=== PATIENT | male | born 1985 | race Caucasian/White ===

== ENCOUNTER 2019-03-19 17:41 | Emergency (ER) | payer OTHER ==
[2019-03-19 17:52] VITALS: RESP 18
[2019-03-19] MEDS ORDERED: KETOROLAC 30 MG/ML 1 ML VIAL IVP STA (18:07)
--- NOTE | 2019-03-19 18:29 | ED ---
Fall HPI - General Chief Complaint: Fall Stated Complaint: Fall, Head Injury Time Seen by Provider: 03/19/19 17:41 Source: patient, EMS, RN notes reviewed Mode of arrival: EMS - History of Present Illness Initial Comments: This is a 33-year-old male who is currently in treatment at [facility] for heroin abuse/addiction worries been since the 18th of this month who states he f ell prior to arrival was brought here by EMS with complaints of head neck and right chest wall pain. He thinks he may broken some ribs he did have brief loss of consciousness for about a minute complains some occipital head pain and some posterior superior neck pain. He denies any loss of function to his upper or lower extremities he denies any other injuries at this time. MD Complaint: fall - Related Data Home Medications Medication Instructions Recorded Confirmed Acetaminophen Tab [Tylenol Tab] 650 mg PO Q4H PRN 03/19/19 03/19/19 Calcium/Magnesium 1000mg/500mg 1 - 2 tab PO TID PRN 03/19/19 03/19/19 Chlorpheniramine Maleate 4 mg PO Q4H PRN 03/19/19 03/19/19 [Chlor-Trimeton] Ibuprofen [Motrin] 600 mg PO Q6H PRN 03/19/19 03/19/19 Mirtazapine [Remeron] 15 - 30 mg PO HS 03/19/19 03/19/19 Ondansetron HCl [Zofran] 8 mg PO Q6H PRN 03/19/19 03/19/19 Ondansetron [Zofran] 4 mg IM Q6H PRN 03/19/19 03/19/19 busPIRone HCl [Buspar] 10 mg PO DIRECTED PRN 03/19/19 03/19/19 cloNIDine HCL [Catapres] 0.1 mg PO Q4H PRN 03/19/19 03/19/19 Previous Rx's Medication Instructions Recorded Ibuprofen 800 mg PO Q6HR PRN #20 tablet 03/19/19 Allergies Allergy/AdvReac Type Severity Reaction Status Date / Time No Known Allergies Allergy Unverified 03/19/19 17:50 Review of Systems ROS Statement: Those systems with pertinent positive or pertinent negative responses have been documented in the HPI. ROS Other: All systems not noted in ROS Statement are negative. Past Medical History Additional Past Medical History / Comment(s): kidney stones History of Any Multi-Drug Resistant Organisms: None Reported Past Surgical History: Orthopedic Surgery Additional Past Surgical History / Comment(s): lithotripsy Past Psychological History: No Psychological Hx Reported Smoking Status: Current every day smoker Past Alcohol Use History: None Reported Past Drug Use History: Heroin General Exam - General Exam Comments Initial Comments: This is a well-developed well-nourished awake alert oriented times female he demonstrates a Edyta Coma Scale of 15 Limitations: no limitations General appearance: alert, anxious Head exam: Present: normocephalic, normal inspection, other (Tennis palpation of the occipital scalp no step-off or crepitation) Eye exam: Present: normal appearance, PERRL, EOMI. Absent: scleral icterus, conjunctival injection, periorbital swelling ENT exam: Present: normal exam, mucous membranes moist Neck exam: Present: normal inspection, tenderness, other (Surgery or bruits cervical collar is in place tenderness to palpation over the paraspinous musculature no definite spinous process tenderness). Absent: meningismus, lymphadenopathy Respiratory exam: Present: normal lung sounds bilaterally, chest wall tenderness (Tenderness palpation especially the right chest wall no open wounds no overt step-off or crepitation). Absent: respiratory distress, wheezes, rales, rhonchi, stridor Cardiovascular Exam: Present: regular rate, normal rhythm, normal heart sounds. Absent: systolic murmur, diastolic murmur, rubs, gallop, clicks GI/Abdominal exam: Present: soft, normal bowel sounds. Absent: distended, tenderness, guarding, rebound, rigid Extremities exam: Present: normal inspection, full ROM, normal capillary refill. Absent: tenderness, pedal edema, joint swelling, calf tenderness Back exam: Present: normal inspection Neurological exam: Present: alert, oriented X3, CN II-XII intact Psychiatric exam: Present: normal affect, normal mood Skin exam: Present: warm, dry, intact, normal color. Absent: rash Course Vital Signs 03/19/19 03/19/19 17:44 19:30 Temperature 98.0 F Pulse Rate 95 95 Respiratory 18 18 Rate Blood Pressure 121/87 136/81 O2 Sat by Pulse 100 99 Oximetry - Reevaluation(s) Reevaluation #1: 03/19/19 19:26 I did review the imaging initially and reports CAT scan is negative for acute findings I did remove the cervical collar. Inspection of the occipital scalp reveals no evidence of any open wounds. Medical Decision Making - Medical Decision Making I did discuss findings with the patient will be discharged back to his facility. The presentation is consistent with scalp contusion and cervical strain due to the LOC he has have evidence of concussion and rib contusions - Radiology Data Radiology results: report reviewed (I did review the imaging and report no acute findings no evidence of fractures or subluxations.), image reviewed Disposition Clinical Impression: Fall, Scalp contusion, Concussion, Cervical strain, Contusion of rib on right side Disposition: HOME SELF-CARE Condition: Good Instructions (If sedation given, give patient instructions): Contusion in Adults (ED), Rib Contusion (ED), Cervical Strain (ED), Concussion (ED) Prescriptions: Ibuprofen 800 mg PO Q6HR PRN #20 tablet PRN Reason: Pain Is patient prescribed a controlled substance at d/c from ED?: No Referrals: None,Stated [Primary Care Provider] - 1-2 days
--- NOTE | 2019-03-19 19:15 | CT ---
EXAMINATION TYPE: CT brain rashidine wo con DATE OF EXAM: 03/19/2019 COMPARISON: None HISTORY: Fall injury CT DLP: 1373.7 mGycm Automated exposure control for dose reduction was used. TECHNIQUE: CT scan of the head and cervical spine are performed without contrast. FINDINGS: Ventricles and sulci appear normal. There is no mass effect nor midline shift. There is n o sign of intracranial hemorrhage. The calvarium is intact. Cervical vertebra have normal alignment. Posterior elements are intact. Disc spaces are fairly normal . Skull base is intact. Facet joints appear normal. IMPRESSION: Negative CT scan of the brain. Negative CT scan cervical spine.
--- NOTE | 2019-03-19 19:49 | XR ---
EXAMINATION TYPE: XR ribs RT w pa chest xray DATE OF EXAM: 03/19/2019 COMPARISON: NONE HISTORY: Rib pain. Chest pain. TECHNIQUE: 5 views FINDINGS: Heart and mediastinum are normal. Lungs are clear. Diaphragm is normal. There is no pleural effusion or pneumothorax. Right shoulder show some 12 mm bony density at the AC joint that could be an old chip fracture. The right ribs appear intact. I see no rib fracture. IMPRESSION: No cardiopulmonary disease. No rib fracture seen. Possible old fracture of the AC joint.
[2019-03-19 20:49] VITALS: BP 126/82; PULSE 85; TEMP 98.1
== END 2019-03-19 20:30 | disposition home or self-care (01) ==
LOC: EC 17:41
DX: S06.0X1A Concussion with loss of consciousness of 30 minutes or less, initial encounter (principal); S16.1XXA Strain of muscle, fascia and tendon at neck level, initial encounter; S00.03XA Contusion of scalp, initial encounter; S20.211A Contusion of right front wall of thorax, initial encounter; R40.2412 Glasgow coma scale score 13-15, at arrival to emergency department; F17.200 Nicotine dependence, unspecified, uncomplicated; Z79.899 Other long term (current) drug therapy; Y93.89 Activity, other specified; W19.XXXA Unspecified fall, initial encounter
CPT/HCPCS: 71101; 72125; 70450; 99284; 96374; J1885